=== PATIENT | female | born 1995 ===

== ENCOUNTER 2021-04-30 06:13 | Inpatient (IN) | payer OTHER ==
--- NOTE | 2021-04-29 20:44 | P.HPOB ---
History of Present Illness H&P Date: 04/29/21 Chief Complaint: Severe IUGR This is a 26y.o. female, 3, para 1, with an estimated date of confinement of 05/15/2021, estimated gestational age of 37-6/7 weeks, who presents for induction of labor due to severe intrauterine growth restriction. Her last ultrasound showed overall growth at less than 10th percentile, head and AC were both less than 2nd percentile and femur length was 3rd percentile. suveillence has been reassuring. She transferred care to ca at 32 weeks. Dating is accurate based on review of previous records. labs: pap-HGSIL Blood type-AB+ Antibody screen-neg RPR-NR Hepatitis B surface antigen-neg Rubella-immune GC/Chlamydia-neg 1 hr. GTT-75 GBS-neg OB Hx: . History of 1 vaginal delivery at 36 weeks. It appears from the records that she did have a partial abruption. 1 miscarriage Campus Police Officer Hx: Hx Chlamydia/GC treated years ago. Social Hx: Single. Unemployed. Review of Systems Constitutional: Denies chills, Denies fever Eyes: denies blurred vision, denies pain Ears, nose, mouth and throat: Denies headache, Denies sore throat Cardiovascular: Denies chest pain, Denies shortness of breath Respiratory: Denies cough Gastrointestinal: Reports abdominal pain (irregular contractions) Genitourinary: Reports pelvic pain, Reports Musculoskeletal: Reports low back pain Integumentary: Denies pruritus, Denies rash Neurological: Denies numbness, Denies weakness Psychiatric: Reports anxiety Past Medical History Additional Past Medical History / Comment(s): Cutis Laxa-genetic disorder; Had stable cardiac echo 08/2020. Past Surgical History: No Surgical Hx Reported Past Anesthesia/Blood Transfusion Reactions: No Reported Reaction Past Psychological History: Anxiety Smoking Status: Former smoker Past Alcohol Use History: None Reported Past Drug Use History: None Reported - Past Family History Mother Family Medical History: No Reported History Medications and Allergies Home Medications Medication Instructions Recorded Confirmed Type Ferrous Sulfate [Feosol] 325 mg PO DAILY 04/29/21 04/29/21 History Pnv,Calcium 72/Iron/Folic Acid 1 each PO 04/29/21 History [ Plus Tablet] Allergies Allergy/AdvReac Type Severity Reaction Status Date / Time No Known Allergies Allergy Verified 04/29/21 20:40 Exam Osteopathic Statement: *. No significant issues noted on an osteopathic structural exam other than those noted in the History and Physical/Consult. HEENT: within normal limits Heart: regular rate and rhythm Lungs: clear to auscultation bilaterally Abdomen: Cervix: 2 cm/60%/-2 heart tones: 140's b doppler Extremities: neg. Trang's Assessment and Plan (1) 37 weeks gestation of Status: Acute Code(s): Z3A.37 - 37 WEEKS GESTATION OF SNOMED Code(s): 19012690 (2) IUGR (intrauterine growth restriction) affecting care of mother Status: Acute Code(s): O36.5990 - MATERN CARE FOR OTH OR SUSP POOR FETL GRTH, UNSP TRI, UNSP SNOMED Code(s): 053455335 Plan: Proceed with oxytocin induction of labor. Expectant management. Epidural anesthesia if desired.
[2021-04-30] MEDS ORDERED: METHYLERGONOVINE 0.2 MG/ML 1 ML AMP IM PRN (06:25)
[2021-04-30] MEDS ORDERED: CARBOPROST TROMETHAMINE 250 MCG/ML 1 ML AMP IM PRN (06:25)
[2021-04-30] MEDS ORDERED: OXYTOCIN 10 UNIT/ML 1 ML VIAL IM PRN (06:25)
[2021-04-30] MEDS ORDERED: TERBUTALINE 1 MG/ML VIAL SQ PRN (06:25)
[2021-04-30] MEDS ORDERED: OXYTOCIN 30 UNITS/500 ML NS 30 UNIT in SALINE 1 500ML.BAG IV SCH (06:25)
[2021-04-30] MEDS ORDERED: LACTATED RINGERS 1,000 ML IV SCH (06:25)
[2021-04-30] MEDS ORDERED: LIDOCAINE 1% (10MG/ML) FOR IV START INTRADERMA PRN (06:25)
[2021-04-30] MEDS ORDERED: LIDOCAINE 0.5% (PF) 5 MG/ML (50 ML SDV) SQ PRN (06:25)
[2021-04-30 06:52] LABS: Basophils % (A) 0 %; Eosinophils # (A) 0.1 k/uL (0-0.7); Eosinophils % (A) 1 %; HCT 35.7 % (34.0-46.0); HGB 11.9 gm/dL (11.4-16.0); Lymphocytes # (A) 1.8 k/uL (1.0-4.8); Lymphocytes % (A) 21 %; MCH 29.6 pg (25.0-35.0); MCHC 33.3 g/dL (31.0-37.0); Mean Platelet Volume 11.8; Monocytes # (A) 0.7 k/uL (0-1.0); Monocytes % (A) 8 %; Neutrophils # (A) 5.6 k/uL (1.3-7.7); Neutrophils % (A) 66 %; Platelet Count 162 k/uL (150-450); RBC 4.01 m/uL (3.80-5.40); RDW 13.7 % (11.5-15.5); WBC 8.6 k/uL (3.8-10.6)
[2021-04-30] MEDS: OXYTOCIN 30 UNITS/500 ML NS 30 UNIT in SALINE 1 500ML.BAG IV SCH ×2 (11:53→12:23)
--- NOTE | 2021-04-30 12:06 | P.PROBDLV ---
Vaginal Delivery Note - . Vaginal Delivery Note: Patient progressed to complete dilation after oxytocin induction of labor and artificial rupture of membranes with clear fluid noted. She declined any pain medication during labor. Once reaching complete, she began pushing. Infant's head came to a crown. With one further push, the infant's head delivered across the perineum followed by the anterior shoulder. Nose and mouth were bulb suctioned at the perineum. With one remaining push, the remainder the e asily delivered and was placed on mother's abdomen and then taken to warmer for evaluation. A viable female was noted with scores of 9 at 1 minute and 9 at 5 minutes and weight of 4 lbs. 10 oz. Cord times one was reduced around the body with delivery. Next the placenta delivered shortly thereafter, intact, with a three-vessel cord. Uterus contracted well after oxytocin was given and uterine massage was carried out. Inspection of the perineum revealed no perineal lacerations. Her bladder was drained to help facilitate uterine contraction. Estimated blood loss is approximately 200 mL's. Both mother and infant are in stable condition.
[2021-04-30] MEDS ORDERED: SIMETHICONE 80 MG CHEWABLE PO PRN (12:07)
[2021-04-30] MEDS ORDERED: diphenhydrAMINE 50 MG/ML 1 ML VIAL IVP PRN ×2 (12:07)
[2021-04-30] MEDS ORDERED: diphenhydrAMINE 25 MG CAP PO PRN (12:07)
[2021-04-30] MEDS ORDERED: ACETAMINOPHEN TAB 325 MG TAB PO PRN (12:07)
[2021-04-30] MEDS ORDERED: HYDROCORTISONE 2.5% RECTAL CREAM 30 GM TUBE RECTAL PRN (12:07)
[2021-04-30] MEDS ORDERED: BENZOCAINE/MENTHOL SPRAY 1 GM/SPRAY AEROSOL TOPICAL PRN (12:07)
[2021-04-30] MEDS ORDERED: LANOLIN CREAM 5 GM TUBE TOPICAL PRN (12:07)
[2021-04-30] MEDS ORDERED: diphenhydrAMINE 50 MG CAP PO PRN (12:07)
[2021-04-30] MEDS ORDERED: ZOLPIDEM 5 MG TAB PO PRN (12:07)
[2021-04-30] MEDS: IBUPROFEN 600 MG TAB PO PRN ×2 (12:39→18:28)
[2021-04-30 12:44] VITALS: RESP 16
[2021-04-30] MEDS: SENNOSIDES-DOCUSATE SODIUM 1 EACH TAB PO SCH (20:11)
[2021-05-01] MEDS: IBUPROFEN 600 MG TAB PO PRN ×2 (00:08→08:05)
[2021-05-01 06:35] LABS: Basophils % (A) 0 %; Eosinophils # (A) 0.1 k/uL (0-0.7); Eosinophils % (A) 1 %; HCT 31.4 % (34.0-46.0); HGB 10.5 gm/dL (11.4-16.0); Lymphocytes # (A) 2.4 k/uL (1.0-4.8); Lymphocytes % (A) 23 %; MCH 30.6 pg (25.0-35.0); MCHC 33.4 g/dL (31.0-37.0); MCV 91.4 fL (80.0-100.0); Mean Platelet Volume 12.1; Monocytes # (A) 0.8 k/uL (0-1.0); Monocytes % (A) 8 %; Neutrophils % (A) 65 %; Platelet Count 153 k/uL (150-450); RBC 3.43 m/uL (3.80-5.40); RDW 14.2 % (11.5-15.5); WBC 10.8 k/uL (3.8-10.6)
[2021-05-01] MEDS: SENNOSIDES-DOCUSATE SODIUM 1 EACH TAB PO SCH (08:04)
[2021-05-01 08:05] LABS: Large Platelets Present
[2021-05-01 09:29] VITALS: BP 123/91; PULSE 76; TEMP 97.6
--- NOTE | 2021-05-01 13:04 | P.DS ---
Providers Date of admission: 04/30/21 06:13 Expected date of discharge: 05/01/21 Attending physician: Christine Montano Primary care physician: Stated None - Discharge Diagnosis(es) (1) 37 weeks gestation of Current Visit: No Status: Acute (2) IUGR (intrauterine growth restriction) affecting care of mother Current Visit: No Status: Acute Hospital Course: This is a 26-year-old female 3 para 1 at 37-6/7 weeks who presented for induction of labor secondary to severe 3 uterine growth restriction. She underwent oxytocin induction of labor and delivered vaginally a viable female infant on 04/30/2021 with scores of 9 at 1 minute and 9 at 5 minutes and infant weight of 4 lbs. 10 oz. Her course has been uncomplicated. Lochia is decreasing. Pain is well-controlled. Vital signs are stable. She is breast-feeding. Abdomen is soft with fundus firm and nontender. Extremities show negative Homans. Impression is status post vaginal delivery day #1. Plan is to discharge home today. Routine instructions are given. She is advised to follow up in the office in 6 weeks for a check. She is advised to call the office if she has any further questions or concerns prior to her appointment time. She will be given a prescription for ibuprofen and a breast pump. Procedures: Oxytocin induction of labor Spontaneous vaginal delivery of a viable female infant on 04/30/2021 Patient Condition at Discharge: Stable Plan - Discharge Summary New Discharge Prescriptions: New Ibuprofen [Motrin] 600 mg PO Q6HR PRN #60 tab PRN Reason: Mild Pain (Scale 1 To 3) Continue Ferrous Sulfate [Iron (65 MG Elemental)] 325 mg PO DAILY Pnv,Calcium 72/Iron/Folic Acid [ Plus Tablet] 1 tab PO DAILY Discharge Medication List Ferrous Sulfate [Iron (65 MG Elemental)] 325 mg PO DAILY 04/29/21 [History] Pnv,Calcium 72/Iron/Folic Acid [ Plus Tablet] 1 tab PO DAILY 04/29/21 [History] Ibuprofen [Motrin] 600 mg PO Q6HR PRN #60 tab 05/01/21 [Rx] Follow up Appointment(s)/Referral(s): Christine Montano DO [Doctor of Osteopathic Medicine] - 06/11/21 11:30 am Activity/Diet/Wound Care/Special Instructions: Instructions 1. Do not begin any exercise program for 3 weeks. 2. Do not resume sexual relations for 3 weeks or longer if uncomfortable. 3. You may take tub baths or showers at any time. 4. You may use tampons if desired after 3 weeks. 5. Keep the area of episiotomy (stitches) clean and dry. 6. If you are not nursing, wear a good fitting, supportive bra during the day and limit fluid intake for at least 1 week to prevent breast engorgement. 7. Call the office, [phone], within the next week to make appointment for your 6 week checkup if it has not already been made. 8. Report any of the following occurrences to the doctor promptly: a. Heavy, excessive bleeding b. Chills, fever c. Burning or frequency of urination d. Pain or redness and breasts if nursing e. Increasing pain or swelling in episiotomy (stitches). In addition to the above instructions, the following additional should be followed: 1. No heavy lifting or straining (exercising) until after 6 week checkup. 2. Keep abdominal incision clean and dry: You may wear a dressing if more comfortable. 3. Make office appointment for 10 days after going home or as instructed by her doctor. Discharge Disposition: HOME SELF-CARE
== END 2021-05-01 16:30 | disposition home or self-care (01) | DRG 806 ==
LOC: 4FBP 06:13
PROVIDERS: ADMIT Obstetrics & Gynecology; ATTEND Obstetrics & Gynecology
PROC: 10E0XZZ Delivery of Products of Conception, External Approach (ICD-10-PCS; principal; 2021-04-30)
PROC: 4A0HXCZ Measurement of Products of Conception, Cardiac Rate, External Approach (ICD-10-PCS; 2021-04-30)
PROC: 3E033VJ Introduction of Other Hormone into Peripheral Vein, Percutaneous Approach (ICD-10-PCS; 2021-04-30)
PROC: 10907ZC Drainage of Amniotic Fluid, Therapeutic from Products of Conception, Via Natural or Artificial Opening (ICD-10-PCS; 2021-04-30)
DX: O36.5930 Maternal care for other known or suspected poor fetal growth, third trimester, not applicable or unspecified (principal); O98.813 Other maternal infectious and parasitic diseases complicating pregnancy, third trimester; Z37.0 Single live birth; O69.89X0 Labor and delivery complicated by other cord complications, not applicable or unspecified; F41.9 Anxiety disorder, unspecified; O99.344 Other mental disorders complicating childbirth; Z3A.37 37 weeks gestation of pregnancy; Z87.891 Personal history of nicotine dependence; Z87.59 Personal history of other complications of pregnancy, childbirth and the puerperium; Z86.19 Personal history of other infectious and parasitic diseases
CPT/HCPCS: 85025; 86850; 86900; 86901

== ENCOUNTER → 2021-09-25 | Outpatient (CLI) | payer OTHER | END | disposition home or self-care (01) | LOC: LABWHC1 13:46 | PROVIDERS: ATTEND Obstetrics & Gynecology | DX: N92.6 Irregular menstruation, unspecified (principal) | CPT/HCPCS: 36415; 84702 ==

== ENCOUNTER → 2021-11-06 | Outpatient (CLI) | payer OTHER ==
--- NOTE | 2021-11-06 11:40 | US ---
EXAMINATION TYPE: Transabdominal DATE OF EXAM: 11/06/2021 10:59 AM COMPARISON: NONE CLINICAL HISTORY: Z36.89 ENCOUNTER FOR OTHER SPECIFIED SCR. EXAM PERFORMED: Transabdominal (TA) EXAM MEASUREMENTS: GESTATIONAL AGE / DATING Physician Established: Not yet established Dates by LMP: 08/12/2021 (12 weeks/2 days) EDC: 05/19/2022 Dates by First Scan: No previous this is first scan Dates by Current Scan for: (11 weeks/ 3 days) EDC: 05/25/2022 MATERNAL ANATOMY Uterus: 12.5 x 6.4 x 8.9 cm Right Ovary: 2.8 x 2.8 x 1.6 cm Left Ovary: 3.6 x 3.2 x 2.2 cm Post CDS / Adnexa: wnl Presence of free fluid: none GESTATION / SURVEY CRL: 4.5 cm (11 weeks/3 days) Yolk Sac (normal less than 6mm): not seen Heart Rate: 170 bpm Rhythm: Normal IUP: Viable IUP Date of LMP: 08/12/2021 Beta HcG (if available): not available Viable IUP. IMPRESSION: Single viable injury in .
== END | disposition home or self-care (01) ==
LOC: RADUSWWP 10:38
PROVIDERS: ATTEND Obstetrics & Gynecology
DX: Z36.89 Encounter for other specified antenatal screening (principal); Z3A.11 11 weeks gestation of pregnancy
CPT/HCPCS: 76801

== ENCOUNTER 2022-05-20 05:52 | Inpatient (IN) | payer OTHER ==
--- NOTE | 2022-05-19 17:33 | P.HPOB ---
History of Present Illness H&P Date: 05/19/22 Chief Complaint: Induction of labor This is a 27 y.o. female, 4, para 2, with an estimated gestational age of 40-1/7 weeks, estimated date of confinement of 05/19/2022, who presents for induction of labor. She has been feeling irregular contractions and pressure. has been essentially uncomplicated. labs: Hepatitis B surface antigen-neg RPR- NR Msxilrs-[id number] Blood type-AB+ Antibody screen-neg HIV-NR Hemoglobin-12.7 Random glucose-65 GBS-neg OB Hx: . History of 2 vaginal deliveries, both complicated by IUGR, 1 at 36 weeks, 1 at 37 weeks. 1 miscarriage. Service Tech Hx: Hx HGSIL on paps; Hx GC, chlamydia treated in past. Review of Systems Constitutional: Denies chills, Denies fever Eyes: denies blurred vision, denies pain Ears, nose, mouth and throat: Denies headache, Denies sore throat Cardiovascular: Denies chest pain, Denies shortness of breath Respiratory: Denies cough Gastrointestinal: Reports abdominal pain (irregular contractions) Genitourinary: Reports pelvic pain, Reports Musculoskeletal: Reports low back pain Integumentary: Denies pruritus, Denies rash Neurological: Denies numbness, Denies weakness Psychiatric: Reports anxiety, Denies depression Past Medical History Additional Past Medical History / Comment(s): Cutis Laxa-genetic disorder; Had stable cardiac echo 08/2020. History of Any Multi-Drug Resistant Organisms: None Reported Past Surgical History: No Surgical Hx Reported Past Anesthesia/Blood Transfusion Reactions: No Reported Reaction Past Psychological History: Anxiety Smoking Status: Former smoker Past Alcohol Use History: None Reported Past Drug Use History: None Reported - Past Family History Mother Family Medical History: No Reported History Medications and Allergies Home Medications Medication Instructions Recorded Confirmed Type Vit No.180/Iron/Folic 1 tab PO DAILY 04/29/21 09/25/21 History [ Plus Vitamin-Mineral] Ferrous Sulfate [Feosol] 325 mg PO DAILY 05/19/22 05/19/22 History Allergies Allergy/AdvReac Type Severity Reaction Status Date / Time No Known Allergies Allergy Verified 09/25/21 15:02 Exam Osteopathic Statement: *. No significant issues noted on an osteopathic structural exam other than those noted in the History and Physical/Consult. HEENT: within normal limits Heart: regular rate and rhythm Lungs: clear to auscultation bilaterally Abdomen: , non-tender Cervix: 2.5 cm/70%/-1 heart tones: 130s by doppler Extremities: neg. Trang's Assessment and Plan (1) 40 weeks gestation of Status: Acute Code(s): Z3A.40 - 40 WEEKS GESTATION OF SNOMED Code(s): 90159177 Plan: Admission for induction of labor. Expectant management. Epidural anesthesia if desired.
[2022-05-20] MEDS ORDERED: LIDOCAINE 1% (10MG/ML) FOR IV START INTRADERMA PRN (06:15)
[2022-05-20] MEDS ORDERED: miSOPROStoL 200 MCG TAB PO PRN (06:15)
[2022-05-20] MEDS ORDERED: TERBUTALINE 1 MG/ML VIAL SQ PRN (06:15)
[2022-05-20] MEDS ORDERED: TRANEXAMIC ACID IN NACL,ISO-OS 1,000 MG in EMPTY BAG 1 BAG IV PRN (06:15)
[2022-05-20] MEDS ORDERED: OXYTOCIN 30 UNITS/500 ML NS 30 UNIT in SALINE 1 500ML.BAG IV SCH ×2 (06:15→10:53)
[2022-05-20] MEDS ORDERED: LIDOCAINE 0.5% (PF) 5 MG/ML (50 ML SDV) SQ PRN (06:15)
[2022-05-20] MEDS ORDERED: CARBOPROST TROMETHAMINE 250 MCG/ML 1 ML AMP IM PRN (06:15)
[2022-05-20] MEDS ORDERED: OXYTOCIN 10 UNIT/ML 1 ML VIAL IM PRN (06:15)
[2022-05-20] MEDS ORDERED: LACTATED RINGERS 1,000 ML IV SCH (06:15)
[2022-05-20] MEDS ORDERED: METHYLERGONOVINE 0.2 MG/ML 1 ML AMP IM PRN (06:15)
[2022-05-20 06:37] LABS: Basophils # (A) 0.1 k/uL (0-0.2); Basophils % (A) 1 %; Eosinophils # (A) 0.1 k/uL (0-0.7); Eosinophils % (A) 1 %; HCT 34.9 % (34.0-46.0); HGB 11.6 gm/dL (11.4-16.0); Lymphocytes # (A) 1.5 k/uL (1.0-4.8); Lymphocytes % (A) 14 %; MCH 28.6 pg (25.0-35.0); MCHC 33.1 g/dL (31.0-37.0); MCV 86.3 fL (80.0-100.0); Mean Platelet Volume 13.7; Monocytes # (A) 0.7 k/uL (0-1.0); Monocytes % (A) 7 %; Neutrophils # (A) 8.1 k/uL (1.3-7.7); Neutrophils % (A) 77 %; Platelet Count 149 k/uL (150-450); RBC 4.05 m/uL (3.80-5.40); RDW 13.2 % (11.5-15.5); WBC 10.5 k/uL (3.8-10.6)
[2022-05-20 08:08] LABS: Large Platelets Present; RBC Morphology Normal
[2022-05-20] MEDS ORDERED: AMPICILLIN 2,000 MG in SODIUM CHLORIDE 0.9% 100 ML IVPB STA (08:19)
[2022-05-20] MEDS ORDERED: ACETAMINOPHEN TAB 325 MG TAB PO PRN (10:53)
[2022-05-20] MEDS ORDERED: ZOLPIDEM 5 MG TAB PO PRN (10:53)
[2022-05-20] MEDS ORDERED: SIMETHICONE 80 MG CHEWABLE PO PRN (10:53)
[2022-05-20] MEDS ORDERED: MEASLES-MUMPS-RUBELLA VACC/PF 12,500 UNIT/0.5 ML VIAL SQ ONE (10:53)
[2022-05-20] MEDS ORDERED: LANOLIN CREAM 5 GM TUBE TOPICAL PRN (10:53)
[2022-05-20] MEDS ORDERED: BENZOCAINE/MENTHOL SPRAY 1 GM/SPRAY AEROSOL TOPICAL PRN (10:53)
[2022-05-20] MEDS ORDERED: HYDROCORTISONE 2.5% RECTAL CREAM 30 GM TUBE RECTAL PRN (10:53)
[2022-05-20] MEDS ORDERED: diphenhydrAMINE 25 MG CAP PO PRN (10:53)
[2022-05-20] MEDS ORDERED: diphenhydrAMINE 50 MG/ML 1 ML VIAL IVP PRN ×2 (10:53)
[2022-05-20] MEDS ORDERED: diphenhydrAMINE 50 MG CAP PO PRN (10:53)
[2022-05-20] MEDS ORDERED: AMPICILLIN 1,000 MG in SODIUM CHLORIDE 0.9% 50 ML IVPB SCH (12:00)
--- NOTE | 2022-05-20 13:21 | P.PROBDLV ---
Vaginal Delivery Note - . Vaginal Delivery Note: Patient progressed to complete dilation after oxytocin augmentation of labor and artificial rupture membranes of a second bag with clear fluid noted. She did receive 1 dose of antibiotics due to prolonged rupture of membranes. She did not receive anything for pain per her request. Once reaching complete, she began pushing. Infant's head came to a crown and with one further push, the 's head delivered across the perineum followed by the anterior shoulder. Nose and mouth were bulb suctioned. Nuchal cord times one was reduced around the infant's head and then with one remaining push, the infant easily delivered and was placed on mother's abdomen. Cord was clamped and cut and infant was taken to warmer for evaluation. A viable male is noted with scores of 8 at 1 minute and 8 at 5 minutes and infant weight of 5 lbs. 15 oz. Uterus contracted fairly well after oxytocin was given and uterine massage was carried out. Inspection of the perineum revealed no perineal lacerations. Estimated blood loss is approximately 200 mL's. Mother and infant are in stable condition.
[2022-05-20] MEDS: IBUPROFEN 600 MG TAB PO PRN (18:16)
[2022-05-20] MEDS: SENNOSIDES-DOCUSATE SODIUM 1 EACH TAB PO SCH (19:45)
[2022-05-21 08:46] LABS: Basophils # (A) 0.1 k/uL (0-0.2); Basophils % (A) 1 %; Eosinophils # (A) 0.1 k/uL (0-0.7); Eosinophils % (A) 1 %; HCT 28.4 % (34.0-46.0); Lymphocytes # (A) 2.8 k/uL (1.0-4.8); Lymphocytes % (A) 27 %; MCH 29.3 pg (25.0-35.0); MCHC 33.7 g/dL (31.0-37.0); MCV 86.9 fL (80.0-100.0); Mean Platelet Volume 14.4; Monocytes # (A) 0.5 k/uL (0-1.0); Monocytes % (A) 5 %; Neutrophils # (A) 6.8 k/uL (1.3-7.7); Neutrophils % (A) 64 %; RBC 3.26 m/uL (3.80-5.40); RDW 13.7 % (11.5-15.5); WBC 10.6 k/uL (3.8-10.6)
--- NOTE | 2022-05-21 08:58 | P.DS ---
Providers Date of admission: 05/20/22 05:52 Expected date of discharge: 05/21/22 Attending physician: Christine Montano Primary care physician: Stated None - Discharge Diagnosis(es) (1) 40 weeks gestation of Current Visit: No Status: Acute Hospital Course: This is a 27-year-old female 4 para 2 at 40 and one sevenths weeks who presented for induction of labor. She underwent oxytocin induction of labor and delivered vaginally a viable male on 05/20/2022 with scores of 8 at 1 minute and 8 at 5 minutes and weight of 5 lbs. 15 oz. Her course has been essentially compensated. She did have some heavy bleeding shortly after delivery but this did resolve. She denies any dizziness or lightheadedness or shortness of breath. Lochia has been decreasing. She is breast-feeding. Vital signs are stable. Abdomen is soft with fundus firm and nontender. Extremities show negative Homans. Impression is status post vaginal delivery day #1. Plan is to discharge later today. Routine instructions are given. She is advised follow-up in the office in 6 weeks for check. She is advised to call the office if she has any further questions or concerns prior to her appointment time. Procedures: Oxytocin induction of labor Spontaneous vaginal delivery of a viable male on 05/20/2022 Patient Condition at Discharge: Stable Plan - Discharge Summary Discharge Rx Participant: No New Discharge Prescriptions: New Ibuprofen [Motrin] 600 mg PO Q6HR PRN #60 tab PRN Reason: Mild Pain (Scale 1 To 3) Continue Vit No.180/Iron/Folic [ Plus Vitamin-Mineral] 1 tab PO DAILY Discharge Medication List Vit No.180/Iron/Folic [ Plus Vitamin-Mineral] 1 tab PO DAILY 04/29/21 [History] Ibuprofen [Motrin] 600 mg PO Q6HR PRN #60 tab 05/21/22 [Rx] Follow up Appointment(s)/Referral(s): Christine Montano DO [Doctor of Osteopathic Medicine] - 06/28/22 11:30 am Activity/Diet/Wound Care/Special Instructions: Instructions 1. Do not begin any exercise program for 3 weeks. 2. Do not resume sexual relations for 3 weeks or longer if uncomfortable. 3. You may take tub baths or showers at any time. 4. You may use tampons if desired after 3 weeks. 5. Keep the area of episiotomy (stitches) clean and dry. 6. If you are not nursing, wear a good fitting, supportive bra during the day and limit fluid intake for at least 1 week to prevent breast engorgement. 7. Call the office, [phone], within the next week to make appointment for your 6 week checkup if it has not already been made. 8. Report any of the following occurrences to the doctor promptly: a. Heavy, excessive bleeding b. Chills, fever c. Burning or frequency of urination d. Pain or redness and breasts if nursing e. Increasing pain or swelling in episiotomy (stitches). In addition to the above instructions, the following additional should be followed: 1. No heavy lifting or straining (exercising) until after 6 week checkup. 2. Keep abdominal incision clean and dry: You may wear a dressing if more comfortable. 3. Make office appointment for 10 days after going home or as instructed by her doctor. Discharge Disposition: HOME SELF-CARE
[2022-05-21 09:24] LABS: HGB 9.5 gm/dL (11.4-16.0)
[2022-05-21 09:41] LABS: Large Platelets Present; Platelet Count 152 k/uL (150-450); Polychromasia Present
[2022-05-21] MEDS: IBUPROFEN 600 MG TAB PO PRN (11:19)
[2022-05-21] MEDS: SENNOSIDES-DOCUSATE SODIUM 1 EACH TAB PO SCH (16:45)
[2022-05-21 21:10] VITALS: RESP 18
[2022-05-22] MEDS: IBUPROFEN 600 MG TAB PO PRN ×3 (00:10→14:47)
[2022-05-22] MEDS: SENNOSIDES-DOCUSATE SODIUM 1 EACH TAB PO SCH ×2 (00:13→08:26)
[2022-05-22 08:44] VITALS: BP 118/82; PULSE 93; TEMP 98
--- NOTE | 2022-05-26 13:07 | CDI ---
Documentation Clarification Form Date: 05/26/2022 12:52:35 PM From: Jodi Nuñez Admit Date: 05/20/2022 5:52:00 AM Patient Name: Nica Arango Visit Number: [id number] Discharge Date: 05/22/2022 3:08:00 PM ATTENTION: The Clinical Documentation Specialists (CDI) and [facility] Coding Staff appreciate your assistance in clarifying documentation. Please respond to the clarification below the line at the bottom and electronically sign. The CDI & [facility] Coding staff will review the response and follow-up if needed. Please note: Queries are made part of the Legal Health Record. If you have any questions, please contact the author of this message via ITS. Dr. Christine Montano There is documentation of heavy bleeding shortly after delivery in the Discharge Summary 05/21/22. Additional clarification is requested. History/Risk Factors: 27 year old 4 para 2, 40 weeks . Admitted for induction of labor for prolonged rupture of membranes. Clinical Indicators: heavy bleeding shortly after delivery, HGB on 05/20 11.6, HGB on 05/21 9.5, vaginal delivery, uterus contracted fairly well after oxytocin and uterine massage, no lacerations, estimated blood loss is approximately 200 mLs Discharged on ibuprofen and prenatals 180/iron/folic Can you please clarify heavy bleeding shortly after delivery? [ ] Immediate hemorrhage [ X ] Delayed hemorrhage [ ] Heavy bleeding after delivery not clinically significant [ ] Other, please specify [ ] Unable to determine Patient had some bleeding several hours after delivery and had a syncopal episode when she got up to bathroom but her mom had already cleaned the pads on her bed and cleaned up in the bathroom before nurse was notified, so accurate quantitation of blood loss was not possible. After this episode, patient did not have any further symptomatic bleeding and nothing out of the ordinary. MTDD
== END 2022-05-22 15:08 | disposition home or self-care (01) | DRG 806 ==
LOC: 4FBP 05:52
PROVIDERS: ADMIT Obstetrics & Gynecology; ATTEND Obstetrics & Gynecology
PROC: 10E0XZZ Delivery of Products of Conception, External Approach (ICD-10-PCS; principal; 2022-05-20)
PROC: 10907ZC Drainage of Amniotic Fluid, Therapeutic from Products of Conception, Via Natural or Artificial Opening (ICD-10-PCS; principal; 2022-05-20)
PROC: 3E033VJ Introduction of Other Hormone into Peripheral Vein, Percutaneous Approach (ICD-10-PCS; principal; 2022-05-20)
DX: O42.12 Full-term premature rupture of membranes, onset of labor more than 24 hours following rupture (principal); O72.2 Delayed and secondary postpartum hemorrhage; Z37.0 Single live birth; Z3A.40 40 weeks gestation of pregnancy; O99.72 Diseases of the skin and subcutaneous tissue complicating childbirth; O99.344 Other mental disorders complicating childbirth; F41.9 Anxiety disorder, unspecified; O69.81X0 Labor and delivery complicated by cord around neck, without compression, not applicable or unspecified; Z86.19 Personal history of other infectious and parasitic diseases; Q82.8 Other specified congenital malformations of skin; Z87.891 Personal history of nicotine dependence; Z79.899 Other long term (current) drug therapy; Z28.310 Unvaccinated for COVID-19
CPT/HCPCS: 85025; 86850; 86900; 86901; 88307

== ENCOUNTER 2022-11-11 08:55 | Day surgery (SDC) | payer OTHER ==
--- NOTE | 2022-11-10 21:45 | P.HPOB ---
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 female, 4, para 3, who presents for colposcopy with loop electrocautery excision procedure due to high grade intraepithelial lesion of the cervix on pap smear. Her original high grade pap smear was in October of 2020 and she had a colposcopy in July of 2021 after she delivered her child that showed VINH III. She then became again and surgery was delayed. H er last pap smear on 09/22/2022 again showed HGSIL. OB Hx: . History of 3 vaginal deliveries and 1 miscarriage. Finance Admin Hx: History of GG & chlamydia treated in past. History of HGSIL on pap & VINH III on colposcopy. Social Hx: Single. Unemployed. Review of Systems Constitutional: Denies chills, Denies fever Eyes: denies blurred vision, denies pain Ears, nose, mouth and throat: Reports headache, Reports vertigo, Denies sore throat Cardiovascular: Denies chest pain, Denies shortness of breath Respiratory: Denies cough Gastrointestinal: Denies abdominal pain, Denies diarrhea, Denies nausea, Denies vomiting Genitourinary: Denies dysuria, Denies hematuria Musculoskeletal: Reports low back pain, Denies myalgias Integumentary: Denies pruritus, Denies rash Neurological: Reports headaches, Denies numbness, Denies weakness Psychiatric: Reports anxiety Endocrine: Reports fatigue Past Medical History Past Medical History: Mitral Valve Prolapse (MVP) Additional Past Medical History / Comment(s): Cutis Laxa-genetic disorder; Had stable cardiac echo 08/2020. abnormal pap History of Any Multi-Drug Resistant Organisms: None Reported Past Surgical History: No Surgical Hx Reported Past Anesthesia/Blood Transfusion Reactions: No Reported Reaction Additional Past Anesthesia/Blood Transfusion Reaction / Comment(s): never had surg. before, no family problems w/anesthesia Past Psychological History: Anxiety Smoking Status: Former smoker Past Alcohol Use History: None Reported Past Drug Use History: None Reported - Past Family History Mother Family Medical History: No Reported History Medications and Allergies Home Medications Medication Instructions Recorded Confirmed Type No Known Home Medications 11/09/22 11/09/22 History Allergies Allergy/AdvReac Type Severity Reaction Status Date / Time No Known Allergies Allergy Verified 11/09/22 12:57 Exam Osteopathic Statement: *. No significant issues noted on an osteopathic structural exam other than those noted in the History and Physical/Consult. HEENT: within normal limits Heart: regular rate and rhythm Lungs: clear to auscultation bilaterally Abdomen: soft, non-tender Pelvic: uterus retroverted, non-tender, no adnexal masses or tenderness Extremities: neg. Trang's Assessment and Plan (1) HGSIL (high grade squamous intraepithelial lesion) on Pap smear of cervix Status: Acute Code(s): R87.613 - HIGH GRADE INTREPITH LESION CYTO SMR CRVX (HGSIL) SNOMED Code(s): 41879274073641 (2) VINH III (cervical intraepithelial neoplasia III) Status: Acute Code(s): D06.9 - CARCINOMA IN SITU OF CERVIX, UNSPECIFIED SNOMED Code(s): 035185710 Plan: Proceed with colposcopy with loop electrocautery excision procedure of the cervix. I have discussed the risks, benefits, and alternative therapies for the above- mentioned procedure and for both sedation/anesthesia as well as necessary blood products administration, if indicated, as they pertain to this patient. The patient has indicated her understanding and acceptance of the risks and procedures discussed.
[~2022-11-11 08:55] MED LIST: Pre Op ABX Message 1 EACH MISC MISCELLANE ONE
[2022-11-11] MEDS ORDERED: DEXAMETHASONE SOD PHOSPHATE 4 MG/ML 1 ML VIAL IV ONE (09:07)
[2022-11-11] MEDS ORDERED: ONDANSETRON 4 MG/2 ML VIAL IVP ONE (09:07)
[2022-11-11] MEDS ORDERED: LACTATED RINGERS 1,000 ML IV SCH (09:07)
[2022-11-11] MEDS ORDERED: fentaNYL (PF) 50 MCG/ML 2 ML AMP IV PRN (09:07)
[2022-11-11] MEDS ORDERED: KETOROLAC 30 MG/ML 1 ML VIAL ONE (10:31)
[2022-11-11] MEDS ORDERED: MIDAZOLAM 2 MG/2 ML VIAL ONE (10:31)
[2022-11-11] MEDS ORDERED: fentaNYL (PF) 50 MCG/ML 2 ML AMP ONE (10:31)
[2022-11-11] MEDS ORDERED: LIDOCAINE 2% INJ 20 MG/ML (2 ML VIAL) ONE (10:31)
[2022-11-11] MEDS ORDERED: PROPOFOL 10 MG/ML 20 ML VIAL IV ONE (10:31)
[2022-11-11] MEDS ORDERED: ACETIC ACID 15 DROPS/ML DROPS MISCELLANE ONE (10:50)
[2022-11-11] MEDS ORDERED: BUPIVACAINE (PF) 0.5% 30 ML VIAL SQ ONE (10:50)
[2022-11-11] MEDS ORDERED: FERRIC SUBSULFATE (MONSELS) JAR TOPICAL ONE (10:50)
[2022-11-11] MEDS ORDERED: LIDOCAINE 0.5%-EPI 1:200,000 50 ML VIAL SQ ONE (10:51)
[2022-11-11 11:23] VITALS: TEMP 97
--- NOTE | 2022-11-11 11:25 | P.OP ---
Date of Procedure: 11/11/22 Preoperative Diagnosis: High-grade squamous intraepithelial lesion of the cervix VINH-3 Postoperative Diagnosis: Cervical dysplasia Procedure(s) Performed: Colposcopy with loop electrocautery excision procedure Anesthesia: SANDRA Surgeon: Christine Montano Estimated Blood Loss (ml): 100 Pathology: other (#1-ectocervix, 12:00 with a black suture and 6:00 with white suture, 10:00 is separate piece, #2-endocervix) Condition: stable Disposition: same day Indications for Procedure: This is a 27 y.o. female, 4, para 3, who presents for colposcopy with loop electrocautery excision procedure due to high grade intraepithelial lesion of the cervix on pap smear. Her original high grade pap smear was in October of 2020 and she had a colposcopy in July of 2021 after she delivered her child that showed VINH III. She then became again and surgery was delayed. Her last pap smear on 09/22/2022 again showed HGSIL. Operative Findings: A large ectropion is noted on the cervix. Acetowhite and Lugol white areas are noted on both of 6 and 12:00 border. No specific mosaicism is visualized. Transition zone is visualized. Description of Procedure: The patient is taken to the operating room she is placed in the dorsal lithotomy position. She is prepped and draped in the normal sterile fashion. Her bladder is drained with a catheter and then catheter is removed. A coated bivalve speculum was placed in the patient's vagina. Colposcopy is performed using a blue light. The cervix is swabbed with 5% acetic acid and the above noted findings are made. The cervix was then swabbed with Lugol's solution and a large transition zone is visualized. No specific mosaicism is visualized. There are are large areas of acetowhite and Lugol white areas on both the 6 and 12:00 border. A large loop is used to swipe from left to right on the posterior border. Same loop was also used to swipe from right to left on the upper border using a sidewall retractor also. Same loop is used to remove a small portion at the 10:00 border that was not previously removed. Specimens are labeled as described above. A small loop is then used to remove the endocervix. Ball- tipped cautery was used to cauterize the bed left behind. Patient did have a very prominent vasculature and was noted to have quite a bit of bleeding on the bed left behind. Monsel solution was also applied to the area. It was noted that there was a small cut on the left upper vaginal wall that was sutured with 3-0 Vicryl suture in a running locked fashion. And also Monsel solution was applied to this area. Good hemostasis was noted. After applying ball-tipped cautery and Monsel solution good hemostasis was assured. All instruments are removed from the vagina. All sponge counts are correct. The patient is then taken to recovery room in stable condition.
[2022-11-11 12:58] VITALS: BP 120/88; PULSE 71; RESP 16
== END 2022-11-11 13:19 | disposition home or self-care (01) ==
LOC: OR 08:55
PROVIDERS: ATTEND Obstetrics & Gynecology
DX: D06.9 Carcinoma in situ of cervix, unspecified (principal); I34.1 Nonrheumatic mitral (valve) prolapse; F41.9 Anxiety disorder, unspecified; K21.9 Gastro-esophageal reflux disease without esophagitis; Z87.891 Personal history of nicotine dependence
CPT/HCPCS: 81025; 88305; 88307; 57460; J2250; J3010; J1885; J2704; J2001

== ENCOUNTER 2023-04-28 17:19 | Emergency (ER) | payer OTHER ==
[2023-04-28 18:25] LABS: Anisocytosis Slight; Basophils % (A) 1 %; Eosinophils % (A) 0 %; HCT 35.8 % (34.0-46.0); HGB 11.6 gm/dL (11.4-16.0); Hypochromasia Slight; Lymphocytes # (A) 1.5 k/uL (1.0-4.8); Lymphocytes % (A) 25 %; MCH 25.6 pg (25.0-35.0); MCHC 32.4 g/dL (31.0-37.0); MCV 79.3 fL (80.0-100.0); Mean Platelet Volume 8.6; Microcytosis Slight; Monocytes # (A) 0.4 k/uL (0-1.0); Monocytes % (A) 6 %; Neutrophils # (A) 4.1 k/uL (1.3-7.7); Neutrophils % (A) 67 %; Platelet Count 310 k/uL (150-450); RBC 4.51 m/uL (3.80-5.40); RDW 16.6 % (11.5-15.5); WBC 6.1 k/uL (3.8-10.6)
[2023-04-28 18:38] LABS: INR 1.1 (<1.2); Partial Thromboplastin Time 26.1 sec (22.0-30.0); Prothrombin Time 11.8 sec (10.0-12.5)
[2023-04-28 18:50] LABS: ALT 16 U/L (4-34); AST 31 U/L (14-36); African American GFR (CKD) >90 (>60 ml/min/1.73 sqM); Albumin 4.3 g/dL (3.5-5.0); Alkaline Phosphatase 66 U/L (38-126); Anion Gap 13 mmol/L; Blood Urea Nitrogen 15 mg/dL (7-17); Calcium 9.3 mg/dL (8.4-10.2); Carbon Dioxide 22 mmol/L (22-30); Chloride 106 mmol/L (98-107); Glucose 71 mg/dL (74-99); Non-African American GFR(CKD) >90 (>60 ml/min/1.73 sqM); Potassium 3.9 mmol/L (3.5-5.1); Sodium 141 mmol/L (137-145); Total Bilirubin 0.3 mg/dL (0.2-1.3); Total Protein 7.2 g/dL (6.3-8.2)
--- NOTE | 2023-04-28 19:03 | ED ---
Dizziness HPI - General Source: patient Mode of arrival: ambulatory Limitations: no limitations <Leonidas Grey - Last Filed: 04/28/23 19:03> - General Source: RN notes reviewed <Yulissa Thomas - Last Filed: 04/30/23 04:06> - General Chief Complaint: Syncope Stated Complaint: dizziness Time Seen by Provider: 04/28/23 18:57 - History of Present Illness Initial Comments: 28-year-old female presents to the ED with a chief complaint of syncope. Rigo james states that this is been ongoing phenomenon for the past few years however more recently feels as if this has been happening more frequently. A chest pain during this. Patient did not actually pass out denies any injury. (Leonidas Grey) Quick note reviewed: This is a 28-year-old female with past medical history significant for mitral valve prolapse, Or tissue disorder who presents the emergency department with a chief complaint of syncope. Patient reports that she has had ongoing single syncopal episodes on and off for the last year. She reports that she had to syncopal episode [id number] that lasted approximately 1 minute each. They were unwitnessed. She denies hitting her head. She denies anticoagulant she denies any dizziness or lightheadedness, vision changes, vision loss, chest pain, shortness of breath, abdominal pain, nausea, vomiting, melena or hematochezia. (Yulissa Thomas) - Related Data Home Medications Medication Instructions Recorded Confirmed No Known Home Medications 11/09/22 11/11/22 Allergies Allergy/AdvReac Type Severity Reaction Status Date / Time No Known Allergies Allergy Verified 11/11/22 09:56 Review of Systems ROS Other: All systems not noted in ROS Statement are negative. <Leonidas Grey - Last Filed: 04/28/23 19:03> ROS Other: All systems not noted in ROS Statement are negative. <Yulissa Thomas - Last Filed: 04/30/23 04:06> ROS Statement: Those systems with pertinent positive or pertinent negative responses have been documented in the HPI. Past Medical History Past Medical History: Mitral Valve Prolapse (MVP) Additional Past Medical History / Comment(s): Cutis Laxa-genetic disorder; Had stable cardiac echo 08/2020. abnormal pap History of Any Multi-Drug Resistant Organisms: None Reported Past Surgical History: No Surgical Hx Reported Additional Past Surgical History / Comment(s): LEEP procedure Past Anesthesia/Blood Transfusion Reactions: No Reported Reaction Additional Past Anesthesia/Blood Transfusion Reaction / Comment(s): never had surg. before, no family problems w/anesthesia Past Psychological History: Anxiety Smoking Status: Former smoker Past Alcohol Use History: None Reported Past Drug Use History: None Reported - Past Family History Mother Family Medical History: No Reported History <Leonidas Grey - Last Filed: 04/28/23 19:03> General Exam Limitations: no limitations General appearance: alert, in no apparent distress Neck exam: Present: normal inspection Extremities exam: Present: normal inspection Back exam: Present: normal inspection Neurological exam: Present: alert <Leonidas Grey - Last Filed: 04/28/23 19:03> <Yulissa Thomas - Last Filed: 04/30/23 04:06> - General Exam Comments Initial Comments: General: Alert, in no acute distress Head: atraumatic normocephalic. Eyes PERRL, EOMI intact, mucous membranes moist Respiratory: Lungs clear to auscultation bilaterally Cardiovascular: Regular rate and rhythm Abdominal: Soft without guarding or rebound Extremities: Normal inspection with full range of motion and normal capillary refill Neuroogic: alert and oriented 3, CN II-XII intact, able to ambulate with steady gait Skin: warm dry and intact with normal color (Yulissa Thomas) Course <Yulissa Thomas - Last Filed: 04/30/23 04:06> Vital Signs 04/28/23 04/28/23 04/29/23 17:27 23:27 02:01 Temperature 98 F 98.6 F Pulse Rate 110 H 100 Respiratory 20 18 Rate Blood Pressure 111/81 120/87 Blood Pressure 122/97 [Right Arm Sitting] Blood Pressure 129/90 [Right Arm Standing] Blood Pressure 124/93 [Supine] O2 Sat by Pulse 99 98 Oximetry - Reevaluation(s) Reevaluation #1: 04/28/2023 23:15 patient reevaluated. On quick note laboratory study results. Patient was offered CT for further evaluation however she refused. (Yulissa Thomas) EKG Findings - EKG Comments: EKG Findings:: Interpreted the following physical performed at 17:, AR interval 171, QRS duration 96, Qt/Qtc 338/391 <Yulissa Thomas - Last Filed: 04/30/23 04:06> Medical Decision Making - Lab Data Result diagrams: 04/28/23 18:02 04/28/23 18:02 <Leonidas Grey - Last Filed: 04/28/23 19:03> - Lab Data Result diagrams: 04/28/23 18:02 04/28/23 18:02 <Yulissa Thomas - Last Filed: 04/30/23 04:06> - Medical Decision Making Was pt. sent in by a medical professional or institution (, PA, [employer], urgent care, hospital, or [facility]...) When possible be specific @ -[No] Did you speak to anyone other than the patient for history (EMS, parent, family, police, friend...)? What history was obtained from this source @ -[No] Did you review nursing and triage notes (agree or disagree)? Why? @ -[I reviewed and agree with nursing and triage notes] Were old charts reviewed (outside hosp., previous admission, EMS record, old EKG, old radiological studies, urgent care reports/EKG's, [facility] records)? Report findings @ -[No old charts were reviewed] Differential Diagnosis (chest pain, altered mental status, abdominal pain women, abdominal pain men, vaginal bleeding, weakness, fever, dyspnea, syncope, headache, dizziness, GI bleed, back pain, seizure, CVA, palpatations, mental health, musculoskeletal)? @ -[not applicable] EKG interpreted by me (3pts min.). @ -[As above] X-rays interpreted by me (1pt min.). @ -X-ray does not reveal any intrapleural process or cardiomegaly CT interpreted by me (1pt min.). @ -[None done] U/S interpreted by me (1pt. min.). @ -[None done] What testing was considered but not performed or refused? (CT, X-rays, U/S, labs)? Why? @ -[None] What meds were considered but not given or refused? Why? @ -[None] Did you discuss the management of the patient with other professionals (professionals i.e. , PA, [employer], lab, RT, psych nurse, social worker assistant, coater hand, teacher, chief fundraising officer, senior case manager)? Give summary @ -[No] Was smoking cessation discussed for >3mins.? @ -[No] Was critical care preformed (if so, how long)? @ -[No] Were there social determinants of health that impacted care today? How? (Homelessness, low income, unemployed, alcoholism, drug addiction, transportation, low edu. Level, literacy, decrease access to med. care, [facility], rehab)? @ -[No] Was there de-escalation of care discussed even if they declined (Discuss DNR or withdrawal of care, Hospice)? DNR status @ -[No] What co-morbidities impacted this encounter? (DM, HTN, Smoking, COPD, CAD, C ancer, CVA, ARF, Chemo, Hep., AIDS, mental health diagnosis, sleep apnea, morbid obesity)? @ -[None] Was patient admitted / discharged? Hospital course, mention meds given and route, prescriptions, significant lab abnormalities, going to OR and other pertinent info. @Discharged. This is a 28-year-old female presents the emergency department with syncope. Patient with tenderness and physical exam performed. Physical exam stable upon evaluation. Heart rate regular rate and rhythm, lungs auscultation bilaterally abdomen patient had a sore reports that the ED. He should had x-rays and laboratory studies which were unremarkable. Patient was offered and encouraged to have CT of her head and chest however she refused. Discussed the results with the patient verbalized all questions were addressed. sHe'll be discharged in stable condition. Case is discussed with Dr. Waters [facility] who agrees with plan of care Undiagnosed new problem with uncertain prognosis? @ -[No] Drug Therapy requiring intensive monitoring for toxicity (Heparin, Nitro, Insulin, Cardizem)? @ -[No] Were any procedures done? @ -[No] Diagnosis/symptom? @ -Syncope Acute, or Chronic, or Acute on Chronic? @ -Acute Uncomplicated (without systemic symptoms) or Complicated (systemic symptoms)? @ -Uncomplicated Side effects of treatment? @ -[No] Exacerbation, Progression, or Severe Exacerbation? @ -[No] Poses a threat to life or bodily function? How? (Chest pain, [place], [place], pneumonia, PE, COPD, DKA, ARF, appy, cholecystitis, CVA, Diverticulitis, Homicidal, Suicidal, threat to staff... and all critical care pts) @ -Low likelihood (Yulissa Thomas) - Lab Data Lab Results 04/28/23 04/28/23 04/28/23 Range/Units 18:02 18:02 18:02 WBC 6.1 (3.8-10.6) k/uL RBC 4.51 (3.80-5.40) m/uL Hgb 11.6 (11.4-16.0) gm/dL Hct 35.8 (34.0-46.0) % MCV 79.3 L (80.0-100.0) fL MCH 25.6 (25.0-35.0) pg MCHC 32.4 (31.0-37.0) g/dL RDW 16.6 H (11.5-15.5) % Plt Count 310 (150-450) k/uL MPV 8.6 Neutrophils % 67 % Lymphocytes % 25 % Monocytes % 6 % Eosinophils % 0 % Basophils % 1 % Neutrophils # 4.1 (1.3-7.7) k/uL Lymphocytes # 1.5 (1.0-4.8) k/uL Monocytes # 0.4 (0-1.0) k/uL Eosinophils # 0.0 (0-0.7) k/uL Basophils # 0.0 (0-0.2) k/uL Hypochromasia Slight Anisocytosis Slight Microcytosis Slight PT 11.8 (10.0-12.5) sec INR 1.1 (<1.2) APTT 26.1 (22.0-30.0) sec Sodium 141 (137-145) mmol/L Potassium 3.9 (3.5-5.1) mmol/L Chloride 106 (98-107) mmol/L Carbon Dioxide 22 (22-30) mmol/L Anion Gap 13 mmol/L BUN 15 (7-17) mg/dL Creatinine 0.84 (0.52-1.04) mg/dL Est GFR (CKD-EPI)AfAm >90 (>60 ml/min/1.73 sqM) Est GFR (CKD-EPI)NonAf >90 (>60 ml/min/1.73 sqM) Glucose 71 L (74-99) mg/dL Calcium 9.3 (8.4-10.2) mg/dL Total Bilirubin 0.3 (0.2-1.3) mg/dL AST 31 (14-36) U/L ALT 16 (4-34) U/L Alkaline Phosphatase 66 (38-126) U/L Troponin I (0.000-0.034) ng/mL Total Protein 7.2 (6.3-8.2) g/dL Albumin 4.3 (3.5-5.0) g/dL Urine Color Urine Appearance (Clear) Urine pH (5.0-8.0) Ur Specific [place] (1.001-1.035) Urine Protein (Negative) Urine Glucose (UA) (Negative) Urine Ketones (Negative) Urine Blood (Negative) Urine Nitrite (Negative) Urine Bilirubin (Negative) Urine Urobilinogen (<2.0) mg/dL Ur Leukocyte Esterase (Negative) Urine HCG, Qual (Not Detectd) 04/28/23 04/28/23 04/28/23 Range/Units 18:02 19:15 19:15 WBC (3.8-10.6) k/uL RBC (3.80-5.40) m/uL Hgb (11.4-16.0) gm/dL Hct (34.0-46.0) % MCV (80.0-100.0) fL MCH (25.0-35.0) pg MCHC (31.0-37.0) g/dL RDW (11.5-15.5) % Plt Count (150-450) k/uL MPV Neutrophils % % Lymphocytes % % Monocytes % % Eosinophils % % Basophils % % Neutrophils # (1.3-7.7) k/uL Lymphocytes # (1.0-4.8) k/uL Monocytes # (0-1.0) k/uL Eosinophils # (0-0.7) k/uL Basophils # (0-0.2) k/uL Hypochromasia Anisocytosis Microcytosis PT (10.0-12.5) sec INR (<1.2) APTT (22.0-30.0) sec Sodium (137-145) mmol/L Potassium (3.5-5.1) mmol/L Chloride (98-107) mmol/L Carbon Dioxide (22-30) mmol/L Anion Gap mmol/L BUN (7-17) mg/dL Creatinine (0.52-1.04) mg/dL Est GFR (CKD-EPI)AfAm (>60 ml/min/1.73 sqM) Est GFR (CKD-EPI)NonAf (>60 ml/min/1.73 sqM) Glucose (74-99) mg/dL Calcium (8.4-10.2) mg/dL Total Bilirubin (0.2-1.3) mg/dL AST (14-36) U/L ALT (4-34) U/L Alkaline Phosphatase (38-126) U/L Troponin I <0.012 (0.000-0.034) ng/mL Total Protein (6.3-8.2) g/dL Albumin (3.5-5.0) g/dL Urine Color Light Yellow Urine Appearance Slightly Cloudy H (Clear) Urine pH 6.0 (5.0-8.0) Ur Specific [place] 1.010 (1.001-1.035) Urine Protein Negative (Negative) Urine Glucose (UA) Negative (Negative) Urine Ketones Negative (Negative) Urine Blood Negative (Negative) Urine Nitrite Negative (Negative) Urine Bilirubin Negative (Negative) Urine Urobilinogen <2.0 (<2.0) mg/dL Ur Leukocyte Esterase Negative (Negative) Urine HCG, Qual Not Detected (Not Detectd) Disposition <Leonidas Grey - Last Filed: 04/28/23 19:03> Is patient prescribed a controlled substance at d/c from ED?: No Time of Disposition: 00:34 <Yulissa Thomas - Last Filed: 04/30/23 04:06> Clinical Impression: Near syncope Disposition: HOME SELF-CARE Condition: Stable Additional Instructions: Monitor symptoms closely Please return to the nearest emergency department if recurrent syncope, chest pain or shortness of breath develop Referrals: None,Stated [Primary Care Provider] - 1-2 days Forms: Area PCPs
--- NOTE | 2023-04-28 19:35 | XR ---
EXAMINATION: XR chest 2V: 04/28/2023 7:08 PM CLINICAL INDICATION: syncope TECHNIQUE: Departmental protocol COMPARISON: None FINDINGS: The lungs are clear. The pleural spaces are negative. The cardiac silhouette is not enlarged. The remainder of the mediastinal silhouette is unremarkable. The skeletal structures and soft tissues are negative for acute findings. IMPRESSION: No acute radiographic process.
[2023-04-28 20:41] LABS: Color,Urine Light Yellow
[2023-04-28 20:42] LABS: Appearance,Urine Slightly Cloudy (Clear); Bilirubin,Urine Negative (Negative); Blood,Urine Negative (Negative); Glucose,Urine (UA) Negative (Negative); Ketones,Urine Negative (Negative); Leukocyte Esterase,Urine Negative (Negative); Nitrite,Urine Negative (Negative); Protein,Urine Negative (Negative); Urobilinogen,Urine <2.0 mg/dL (<2.0)
[2023-04-29 02:13] VITALS: BP 120/87; PULSE 100; RESP 18; TEMP 98.6
== END 2023-04-29 02:03 | disposition home or self-care (01) ==
LOC: EC 17:19
DX: R55 Syncope and collapse (principal); Z86.59 Personal history of other mental and behavioral disorders; Z87.891 Personal history of nicotine dependence
CPT/HCPCS: 36415; 71046; 80053; 81001; 81025; 84484; 85025; 85610; 85730; 93005; 99284